=== PATIENT | female | born 1955 | race Caucasian/White ===

== ENCOUNTER → 2017-06-14 15:12 | Outpatient (CLI) | payer BC | END | disposition home or self-care (01) | LOC: D.MAMMO 05-25 13:15 | DX: Z12.31 Encounter for screening mammogram for malignant neoplasm of breast (principal) ==

== ENCOUNTER 2018-10-09 13:30 | Outpatient (CLI) | payer BC | END 2018-10-09 14:30 | disposition home or self-care (01) | LOC: D.MAMMO 13:30 | PROVIDERS: ATTEND Family Medicine | DX: Z12.31 Encounter for screening mammogram for malignant neoplasm of breast (principal) ==